=== PATIENT | male | born 1950 | race Caucasian/White ===

== ENCOUNTER 2021-12-04 09:33 | Emergency (ER) | payer MEDICARE, BC ==
[2021-12-04] MEDS ORDERED: Sodium Chloride 0.9% 10 ML Syringe FLUSH PRN (11:25)
== END 2021-12-04 15:30 | disposition home or self-care (01) ==
LOC: JD.ED 09:33
DX: R41.0 Disorientation, unspecified (principal); D69.6 Thrombocytopenia, unspecified; I10 Essential (primary) hypertension; Z20.822 Contact with and (suspected) exposure to COVID-19
CPT/HCPCS: 36415; 70450; 70551; 71045; 80053; 80306; 80307; 81001; 82947; 83735; 84484; 85025; 86140; 93005; 99285; J3490; U0002; 93010; 99284